=== PATIENT | female | born 1960 | race Caucasian/White ===

== ENCOUNTER 2021-05-13 08:41 | Emergency (ER) | payer MEDICAID ==
[~2021-05-13] VITALS: Ht 170.2 cm; Wt 94.4 kg
[2021-05-13 10:00] VITALS: BP 146/87
[2021-05-13] MEDS ORDERED: IBUPROFEN 600 MG TABLET PO ONE (10:30)
== END 2021-05-13 10:23 | disposition home or self-care (01) ==
LOC: EMS 08:46
DX: S13.4XXA Sprain of ligaments of cervical spine, initial encounter (principal); V43.52XA Car driver injured in collision with other type car in traffic accident, initial encounter; Y93.89 Activity, other specified; Y92.488 Other paved roadways as the place of occurrence of the external cause; Y99.8 Other external cause status
CPT/HCPCS: 72125; 99284; Z7502; Z7610